=== PATIENT | female | born 1980 | race Caucasian/White ===

== ENCOUNTER 2020-10-11 16:54 | Outpatient (CLI) | payer OTHER, SELFPAY ==
--- NOTE | ~2020-10-11 | US_ITS ---
EXAMINATION: US thyroid DATE: 10/11/2020 17:22 INDICATION: Thyroiditis TECHNIQUE: Multiple ultrasound images of the thyroid were obtained. COMPARISON: None. FINDINGS: The right thyroid lobe measures 6.7 x 2.5 x 2.2 cm. The left thyroid lobe measures 6.2 x 1.6 x 2.8 c m. Thyroid isthmus measures 6 mm in thickness. No discrete nodules identified. There is heterogeneous echogenicity and coarsened echotexture with increased vascular flow on color Doppler throughout both thyroid lobes consistent with given history of thyroiditis IMPRESSION: 1. Enlarged heterogeneous thyroid with coarsened echotexture and diffuse increased vascular flow cons istent with given history of thyroiditis. Reviewed, dictated and finalized at location A. IMPRESSION: 1. Enlarged heterogeneous thyroid with coarsened echotexture and diffuse increa sed vascular flow consistent with given history of thyroiditis.
== END 2020-10-11 16:55 | disposition home or self-care (01) ==
PROVIDERS: PCP Family Medicine; Visit Provider Physician Assistant Medical
DX: E06.9 Thyroiditis, unspecified (principal); E03.9 Hypothyroidism, unspecified
CPT/HCPCS: 76536

== ENCOUNTER → 2021-07-04 12:42 | Outpatient (CLI) | payer OTHER, SELFPAY ==
--- NOTE | ~2021-07-04 | XR_ITS ---
XR hip LT min 3V w AP pelvis DATE: 07/04/2021 12:58 INDICATION: Left hip pain TECHNIQUE: AP pelvis. AP and lateral views of left hip. COMPARISON: None FINDINGS: The pubic symphysis and sacroiliac joints are intact. No pelvic fracture or bone destructio n. No fracture, dislocation, avascular necrosis or bone destruction of the left hip. Left hip joint s pace is well preserved and symmetric with the right hip joint space. IMPRESSION: Negative Reviewed, dictated and finalized at location A. THERAPIST IMPRESSION: Negative
== END ==
PROVIDERS: PCP Family Medicine; Visit Provider Family Medicine
DX: S73.192A Other sprain of left hip, initial encounter (principal)
CPT/HCPCS: 73502

== ENCOUNTER 2021-12-06 09:28 | Emergency (ER) | payer OTHER, SELFPAY ==
--- NOTE | ~2021-12-06 | CT_ITS ---
EXAMINATION: CT brain wo con INDICATION: Headache COMPARISON: None TECHNIQUE: Standard unenhanced head CT. The dose-length product (DLP) was 681.00 mGy-cm. The mA was a djusted according to patient size. Iterative reconstruction technique was employed. FINDINGS: There is no intracranial hemorrhage, acute infarction, or abnormal mass lesion. The ventric les are normal. There is no abnormal mass effect or midline shift. The carlos-white matter differentiat ion is normal. The basal cisterns are patent. The orbits are normal. The paranasal sinuses, mastoids and calvarium are normal. IMPRESSION: 1. No acute intracranial abnormality. Reviewed, dictated and finalized at location F.
[2021-12-06 09:34] VITALS: BP 130/82; PULSE 54; RESP 18; TEMP 36.2; O2SAT 100
[2021-12-06 09:55] LABS: Basophils Percent Auto 0.4 % (0.2-1.2); Eosinophils Absolute Auto 0.2 K/mm3 (0-0.3); Eosinophils Percent Auto 3.9 % (0-4.4); Hematocrit 39.4 % (37.0-47.0); Hemoglobin 12.9 g/dL (12.0-15.0); Immature Granulocyte Absolute 0.01 K/mm3 (0.00-0.031); Immature Granulocyte Percent A 0.2 % (0-0.5); Lymphocytes Absolute Auto 1.96 K/mm3 (0.9-3.2); Lymphocytes Percent Auto 40.3 % (18.3-44.2); Mean Corpuscular HGB Conc 32.7 g/dl (32-36); Mean Corpuscular Hemoglobin 29.1 pg (26-34); Mean Corpuscular Volume 88.7 fl (80-100); Mean Platelet Volume 11.3 fl (7.4-10.4); Monocytes Absolute Auto 0.4 K/mm3 (0.1-0.6); Monocytes Percent Auto 7.8 % (2.6-8.5); Neutrophils Absolute Auto 2.3 K/mm3 (1.3-6.7); Neutrophils Percent Auto 47.4 % (45.5-73.1); Platelet Count Result 183 k/mm3 (150-375); Red Blood Count 4.44 M/mm3 (4.2-5.4); Red Cell Distribution Width 12.5 % (11.5-14.5); White Blood Count 4.9 K/mm3 (4.5-10.0)
[2021-12-06 10:04] LABS: Alanine Aminotransferase 13 U/L (6-35); Albumin Level 4.4 g/dL (3.5-5.1); Alkaline Phosphatase 71 U/L (38-126); Anion Gap 5 mmol/L (8-16); Aspartate Amino Transferase 19 U/L (14-36); Bilirubin,Total 0.5 mg/dL (0.2-1.3); Blood Urea Nitrogen 6 mg/dL (7-17); Calcium 8.8 mg/dL (8.4-10.2); Carbon Dioxide 29 mmol/L (22-30); Chloride 103 mmol/L (98-107); Estimated CRCL calculation 67 ml/min; Estimated Glomerular Filt Rate > 60; Glucose 110 mg/dL (65-110); Sodium 137 mmol/L (137-145)
--- NOTE | 2021-12-06 10:18 | ED.GENADULT ---
HPI - General Adult General Chief complaint: Headache Stated complaint: headache and neckache x 3 days Time Seen by Provider: 12/06/21 09:42 Source: patient Mode of arrival: ambulatory Limitations: no limitations History of Present Illness HPI narrative: Patient is a 40-year-old female who presents the ED with report of headache and neck pain. Patient reports she went to a concert on Thursday night and was out in the heat. She did have several alcoholic beverages. She vomited once that night and later developed a headache and neck pain. The headache started gradually and is worse with sitting upright and movement. No thunderclap sensation. She does have a remote history of migraines. She denies any photophobia or phonophobia. She did have nausea and vomiting on Thursday but has not had any vomiting since then. She saw her PCP about this yesterday and was told she was likely experiencing a migraine. She was given prescriptions for Zofran and Flexeril. She has been taking this without much relief of her pain. No nausea currently, however. She took Aleve at 8 AM this morning without relief of her pain. Denies any fever, chills, sweats, lower back pain, abdominal pain, cough or cold symptoms, dizziness, lightheadedness, focal weakness, vision changes, confusion. Related Data Home Medications Medication Instructions Recorded Confirmed cholecalciferol (vitamin D3) 125 20,000 unit PO WEEKLY 06/06/19 07/03/21 mcg (5,000 unit) tablet Allergies Allergy/AdvReac Type Severity Reaction Status Date / Time clavulanic acid Allergy Intermediate rash?? Verified 12/06/21 10:19 [From Augmentin] viral exanthem amoxicillin Allergy Hives Verified 12/06/21 09:42 Review of Systems Review of Systems: CONSTITUTIONAL: Denies fever, chills, or sweats. EYES: Denies visual changes, photophobia. ENT: Denies rhinorrhea, congestion, sore throat, phonophobia. CARDIOVASCULAR: Denies chest pain. RESPIRATORY: Denies cough or dyspnea. GASTROINTESTINAL: Reports nausea, vomiting. Denies abdominal pain or diarrhea. GENITOURINARY: Denies dysuria or hematuria. MUSCULOSKELETAL: Reports neck pain. Denies low back pain. NEUROLOGIC: Reports headache. Denies numbness, dizziness, lightheadedness, or focal weakness. All systems reviewed & are unremarkable except as noted in HPI and below PMFSH Past Medical History Medical History (Updated 12/06/21 @ 19:48 by Radha Campos PA-C) Hypothyroidism (acquired) Migraines Multinodular goiter Narcolepsy Surgical History Surgical History (Updated 12/06/21 @ 10:21 by Radha Campos PA-C) No pertinent past surgical history Family History Family History Father Family history of thyroid disease Mother Diabetes mellitus Hypertension Cerebrovascular accident Grandparent Family history of malignant neoplasm of breast Sibling Diabetes mellitus Other Family history of arthritis Family history of migraine headaches Social History Social History Smoking status: Never smoker Alcohol intake: current Exam Narrative: GENERAL: Well appearing, well-nourished, non-toxic, in no acute distress. HEAD: Normocephalic, atraumatic. EYES: PERRL/EOMI, conjunctivae clear bilaterally. No nystagmus. NECK: Supple. No adenopathy, no masses. No midline cervical spinal tenderness. Mild left-sided paraspinal muscle tenderness and muscle tightness. Minimal limited left-sided range of motion/rotation of the neck due to pain. No meningeal signs - negative Kernig's and Brudzinski's. RESPIRATORY: Airway patent, respirations nonlabored. Clear to auscultation bilaterally, no rales, rhonchi, wheezing. CARDIOVASCULAR: Regular rate and rhythm without murmurs, rubs, or gallops. Peripheral pulses 2+ and equal bilaterally. ABDOMINAL: Soft, nontender, nondistended, no hepatosplenomegaly. Normoactive BS. MUSCULOSK
[2021-12-06 10:26] VITALS: BP 130/82; PULSE 64; RESP 14; O2SAT 100
[2021-12-06] MEDS: METOCLOPRAMIDE HCL INJ 10 MG/2 ML VIAL IV PUSH (10:33)
[2021-12-06] MEDS: SODIUM CHLORIDE 0.9% IV 1,000 ML 999 ML IV CONT (10:34)
[2021-12-06] MEDS: diphenhydrAMINE HCl INJ 50 MG/ML VIAL 25 MG IV PUSH (10:34)
[2021-12-06 10:51] LABS: Appearance Urine Clear (Clear); Bilirubin Urine Negative (Negative); Blood Urine Negative (Negative); Color Urine Yellow (Yellow); Glucose Urine UA Negative (Negative); Ketones Urine Negative (Negative); Leukocyte Esterase Ur Negative LEU/UL (Negative); Nitrate Urine Negative (Negative); Protein Urine Negative (Negative); Specific Grav Ur 1.015 (1.001-1.035); Urobilinogen Urine 0.2 mg/dL (<2.0)
[2021-12-06 11:03] LABS: Add Urine Microscopic? NO
[2021-12-06 11:25] LABS: SARS-CoV-2 RNA PCR Negative
[2021-12-06 11:31] VITALS: BP 108/64; PULSE 52; RESP 18; O2SAT 100
[2021-12-06 14:16] VITALS: BP 100/68; PULSE 60; RESP 15; O2SAT 99
== END 2021-12-06 15:06 | disposition home or self-care (01) ==
PROVIDERS: Physician Assistant; Emergency Provider Emergency Medicine; PCP Family Medicine
DX: R51.9 Headache, unspecified (principal); Z20.822 Contact with and (suspected) exposure to COVID-19; E03.9 Hypothyroidism, unspecified
CPT/HCPCS: 36415; 70450; 80053; 81003; 81025; 85025; 96361; 96365; 96375; 99284; C9803; J0131; J1100; J1200; J2765; J7030; U0003; U0005

== ENCOUNTER → 2022-01-02 11:18 | Outpatient (CLI) | payer OTHER, SELFPAY ==
--- NOTE | ~2022-01-02 | XR_ITS ---
EXAMINATION: XR abdomen/kub 1V DATE: 01/02/2022 11:52 INDICATION: Nausea. TECHNIQUE: A supine view of the abdomen on 2 radiographs was obtained. COMPARISON: None. FINDINGS: There are no dilated loops of bowel. There is a small volume of stool in the colon. There a re phleboliths in the pelvis. IMPRESSION: 1. Normal bowel gas pattern. Reviewed, dictated and finalized at location A.
== END ==
PROVIDERS: PCP Family Medicine; Visit Provider Family Medicine
DX: K59.00 Constipation, unspecified (principal); R11.0 Nausea
CPT/HCPCS: 74018

== ENCOUNTER → 2023-08-05 08:24 | Outpatient (CLI) | payer OTHER, SELFPAY ==
--- NOTE | ~2023-08-05 | DEXA_ITS ---
Bone Density Report Name: NASH VICTORIA Age: 42 Sex: Female Ethnicity: White Date of : 1980 Indication: Vitamin deficiency Referring Provider: EZEQUIEL DU Study: Bone densitometry was performed. Exam Date: August 05, 2023 Accession number: [id number] Bone Density: Region BMD T-score Z-score Classification AP Spine (L1-L4) 0.839 -1.9 -1.5 Osteopenia Femoral Neck (Left) 0.738 -1.0 -0.6 Normal Total Hip (Left) 0.799 -1.2 -0.9 Osteopenia Femoral Neck (Right) 0.716 -1.2 -0.8 Osteopenia Total Hip (Right) 0.763 -1.5 -1.2 Osteopenia Total Hip Mean 0.781 -1.4 -1.1 Osteopenia World Health Organization criteria for BMD impression classify patients as: Normal (T-score at or above -1.0), Osteopenia (T-score between -1.0 and -2.5), or Osteoporosis (T-score at or below -2.5). 10-year Fracture Risk: FRAX not reported because: Premenopausal woman Clinical Information Provided by Patient: Has used the following medications: Vitamin D Patient maximum height was 66.5 Drinks caffeinated beverages Onset of menses at age 11 Premenopausal Number of children 4 Impression: The patient's bone mass is within expected range for age, gender and ethnicity. Discussion: BONE DENSITY IS WITHIN EXPECTED LIMITS FOR AGE, SEX AND RACE. Bone density is within expected limits for age, sex and race at all sites measured. The patient should follow a healthful lifestyle (good nutrition with adequate calcium and vitamin D, and appropriate weight-bearing exercise). Follow-Up: Consider repeating this study in 2 to 3 years to reassess this patient's status, or sooner if there is some new clinical indication. Reported by: LOVE on 08/05/2023 8:32:00 AM. Reviewed, dictated and finalized at location A. [facility]
== END ==
PROVIDERS: PCP Family Medicine; Visit Provider Family Medicine
DX: E56.9 Vitamin deficiency, unspecified (principal); M85.88 Other specified disorders of bone density and structure, other site; M85.852 Other specified disorders of bone density and structure, left thigh; M85.851 Other specified disorders of bone density and structure, right thigh
CPT/HCPCS: 77080